=== PATIENT | female | born 1980 | race Caucasian/White ===

== ENCOUNTER 2016-10-05 13:09 | Emergency (ER) | payer BC ==
[~2016-10-05] VITALS: Ht 175.3 cm; Wt 92.6 kg
[2016-10-05 13:21] VITALS: BP 114/65; PULSE 94; RESP 16; TEMP 97.6; O2SAT 97
[2016-10-05] MEDS ORDERED: TETANUS/DIPHTHERIA TOXOID ADULT 0.5 ML VIAL IM ONE (13:30)
[2016-10-05] MEDS ORDERED: LIDOCAINE 1%/EPINEPHrine 1:100,000 SOLN 20 ML VIAL INFIL ONE (13:30)
--- NOTE | 2016-10-05 13:33 | PD ---
HPI Chief Complaint: Laceration/Skin Injury Time Seen by Provider: 13:32 Travel History International Travel<30 days: No Contact w/Intl Traveler<30days: No Traveled to known affect area: No History of Present Illness HPI 36 year old female presents to the emergency department presents to the emergency department for evaluation of a laceration to her right anterior forearm that occurred approximately [place]. She states that she was trying to cut open a toy for her children when the knife slipped and cut her right forearm. The patient is unsure of her tetanus immunization is up-to-date. She reports no chronic medical problems and takes no prescribed medications. She denies any chance of . Patient denies any other complaints at this time. No other injury. She denies any loss range of motion. [facility] Past Medical History Medical History: Denies Significant Hx Tetanus Vaccination: Unknown Influenza Vaccination: No ?: Not Past Surgical History Surgical History: No Previous Surgery Social History Alcohol Use: Yes (FEW TIMES PER WEEK) Tobacco Use: No Substance Use: No Allergies-Medications (Allergen,Severity, Reaction): Coded Allergies: No Known Allergies (Unverified , 10/05/16) Reported Meds & Prescriptions Reported Meds & Active Scripts Active No Active Prescriptions or Reported Medications Review of Systems Except as stated in HPI: all other systems reviewed are Neg Physical Exam Narrative GENERAL: Well-nourished, well-developed female patient, ambulatory. Afebrile. SKIN: Focused skin assessment warm/dry. She has a 2 cm laceration to the right anterior forearm. HEAD: Normocephalic. Atraumatic. EYES: No scleral icterus. No injection or drainage. NECK: Supple, trachea midline. No JVD or lymphadenopathy. CARDIOVASCULAR: Regular rate and rhythm without murmurs, gallops, or rubs. Right radial pulses 2+. Capillary refill less than 2 seconds to the digits of the right hand. RESPIRATORY: Breath sounds equal bilaterally. No accessory muscle use. Lungs sounds are clear to auscultation. GASTROINTESTINAL: Abdomen soft, non-tender, nondistended. MUSCULOSKELETAL: No cyanosis, or edema. Patient has full range of motion of all digits of the right hand. She has a normal grasp and of the right hand. Strength is 5/5 in all digits of the right hand. She has full flexion- extension of the right wrist. BACK: Nontender without obvious deformity. No CVA tenderness. Data Data Last Documented VS Vital Signs Date Time Temp Pulse Resp B/P Pulse Ox O2 Delivery O2 Flow Rate FiO2 10/05/16 13:21 97.6 94 16 114/65 97 Orders Tetanus/Diphtheria Tox Adult (Tetanus/Di (10/05/16 13:30) Lidocai-Epi 1%-1:100,000 Inj (Xylocaine- (10/05/16 13:30) MDM Medical Decision Making Medical Screen Exam Complete: Yes Emergency Medical Condition: Yes Medical Record Reviewed: Yes Differential Diagnosis Laceration versus tendon laceration versus abrasion Narrative Course 36-year-old female presents to the emergency department for evaluation of laceration to the right anterior forearm that occurred approximately one hour ago. Physical exam reveals a 2 cm laceration of the right anterior forearm. I can see the base of the wound and there is no evidence of foreign body. Tetanus immunization is updated. Patient gives verbal consent for laceration repair. Dr. Bar's medical student will repair laceration. Patient will be discharged with a short term prescription fo r Keflex. She will also be given a prescription for ibuprofen for pain. She is given proper wound care instructions. She verbalizes agreement and understanding. The patient was discharged in stable condition with instructions, including return instructions and follow up instructions. Diagnosis Primary Impression: Laceration of forearm without complication Qualified Code: S51.811A - Laceration of forearm without complication, right, initial encounter Referrals: Primary Care Physician call for appointment Patient Instructions: Care For Your Stitches (ED), General Instructions, Laceration (ED) Additional Instructions: Clean twice daily with soap and water and apply nguc-ipa-jgvaenl antibiotic ointment. Take ibuprofen as instructed as needed with food for pain. Take antibiotic as directed until gone. Keep laceration clean and dry. Suture removal in 7 days. You may follow up with your primary care physician or return to the emergency department for this. Return to the emergency department for any acute worsening of symptoms. Med/Other Pt SpecificInfo: Prescription(s) given Scripts Ibuprofen 600 Mg [id number] Mg PO TID PRN (PAIN SCALE 1 TO 10) #21 TAB Ref 0 Prov:Judi Kennedy 10/05/16 Cephalexin (Keflex)500 Mg [id number] Mg PO Q8H 5 Days Ref 0 Prov:Judi Kennedy 10/05/16 Disposition: 01 DISCHARGE HOME Condition: Stable Judi Kennedy October 05, 2016 13:33
[2016-10-05] MEDS ORDERED: CEPH-460 PO (14:02)
[2016-10-05] MEDS ORDERED: IBUP-232 PO (14:02)
--- NOTE | 2016-10-12 07:04 | PD ---
Data Data Orders Tetanus/Diphtheria Tox Adult (Tetanus/Di (10/05/16 13:30) Lidocai-Epi 1%-1:100,000 Inj (Xylocaine- (10/05/16 13:30) MDM Supervised Visit with CARINA: Yes Procedures Procedure Narrative LACERATION LOCATION: forearm LENGTH: 2 cm NUMBER OF STITCHES/XOCHITL: 2 REPAIR: The area of the laceration was prepped and sterilely draped. The laceration was infiltrated with 1% lidocaine. The wound was copiously irrigated and explored without evidence of foreign body, tendon injury or neurovascular injury. The wound was closed using 4-0 nylon. This was a single layer repair. A sterile dressing was applied. The patient was advised to keep the dressing clean and dry. Patient tolerated the procedure well. Diagnosis Primary Impression: Laceration of forearm without complication Qualified Code: S51.811A - Laceration of forearm without complication, right, initial encounter Referrals: Primary Care Physician call for appointment Patient Instructions: General Instructions, Care For Your Stitches (ED), Laceration (ED) Departure Forms: Tests/Procedures Additional Instruction: Clean twice daily with soap and water and apply [id number] antibiotic ointment. Take ibuprofen as instructed as needed with food for pain. Take antibiotic as directed until gone. Keep laceration clean and dry. Suture removal in 7 days. You may follow up with your primary care physician or return to the emergency department for this. Return to the emergency department for any acute worsening of symptoms. Scripts Ibuprofen 600 Mg [id number] Mg PO TID PRN (PAIN SCALE 1 TO 10) #21 TAB Ref 0 Prov:Judi Kennedy 10/05/16 Cephalexin (Keflex)500 Mg [id number] Mg PO Q8H 5 Days Ref 0 Prov:Judi Kennedy 10/05/16 Disposition: 01 DISCHARGE HOME Condition: Stable Norah Bar MD October 12, 2016 07:04
== END 2016-10-05 14:26 | disposition home or self-care (01) ==
LOC: PHEFT 13:09
DX: S51.811A Laceration without foreign body of right forearm, initial encounter (principal); Z23 Encounter for immunization; W26.0XXA Contact with knife, initial encounter
CPT/HCPCS: 12001